=== PATIENT | female | born 1985 | race Caucasian/White ===

== ENCOUNTER → 2023-08-07 06:23 | Day surgery (SDC) | payer BC, SELFPAY | LOC: GI 06:23 | PROVIDERS: ATTENDING PHYSICIAN Internal Medicine Gastroenterology; FAMILY PHYSICIAN Internal Medicine | DX: D12.2 Benign neoplasm of ascending colon (principal); Z83.719 Family history of colon polyps, unspecified | CPT/HCPCS: 45380; 88305 ==

== ENCOUNTER → 2024-05-09 14:10 | Outpatient (REF) | payer BC, SELFPAY ==
[2024-05-12 03:02] LABS: Gastrin 111 pg/mL (0-100)
== END ==
LOC: REG 14:10
PROVIDERS: ATTENDING PHYSICIAN Internal Medicine Gastroenterology; FAMILY PHYSICIAN Internal Medicine
DX: R19.7 Diarrhea, unspecified (principal)
CPT/HCPCS: 36415; 74018; 82941; 86316

== ENCOUNTER 2024-11-28 06:26 | Day surgery (SDC) | payer BC, SELFPAY | END 2024-11-28 12:39 | disposition home or self-care (01) | LOC: GI 06:26 | PROVIDERS: ATTENDING PHYSICIAN Internal Medicine Gastroenterology; FAMILY PHYSICIAN Internal Medicine | DX: K92.1 Melena (principal) | CPT/HCPCS: 45331; 88305 ==

== ENCOUNTER 2025-06-30 11:08 | Outpatient (RCR) | payer BC, SELFPAY | END 2025-06-30 23:59 | disposition home or self-care (01) | LOC: RPT 11:08 | PROVIDERS: ATTENDING PHYSICIAN Internal Medicine Gastroenterology; FAMILY PHYSICIAN Internal Medicine; REFERRING PHYSICIAN Obstetrics & Gynecology | DX: R10.2 Pelvic and perineal pain (principal); M62.89 Other specified disorders of muscle; Z73.6 Limitation of activities due to disability | CPT/HCPCS: 97110; 97112; 97140; 97163; 97530 ==

== ENCOUNTER 2025-07-28 09:22 | Outpatient (RCR) | payer BC, SELFPAY | END 2025-07-28 23:59 | disposition home or self-care (01) | LOC: RPT 09:22 | PROVIDERS: ATTENDING PHYSICIAN Internal Medicine Gastroenterology; FAMILY PHYSICIAN Internal Medicine; REFERRING PHYSICIAN Obstetrics & Gynecology | DX: R10.2 Pelvic and perineal pain (principal); M62.89 Other specified disorders of muscle; Z73.6 Limitation of activities due to disability | CPT/HCPCS: 97110; 97112; 97140; 97530 ==

== ENCOUNTER 2025-08-11 08:48 | Outpatient (RCR) | payer BC, SELFPAY | END 2025-08-11 23:59 | disposition home or self-care (01) | LOC: RPT 08:48 | PROVIDERS: ATTENDING PHYSICIAN Internal Medicine Gastroenterology; FAMILY PHYSICIAN Internal Medicine; REFERRING PHYSICIAN Obstetrics & Gynecology | DX: R10.23 Pelvic and perineal pain bilateral (principal); R10.2 Pelvic and perineal pain (principal); M62.89 Other specified disorders of muscle; Z73.6 Limitation of activities due to disability | CPT/HCPCS: 97110; 97112; 97140; 97530 ==

== ENCOUNTER 2025-09-22 09:14 | Outpatient (RCR) | payer BC, SELFPAY | END 2025-09-22 23:59 | disposition home or self-care (01) | LOC: RPT 09:14 | PROVIDERS: ATTENDING PHYSICIAN Internal Medicine Gastroenterology; FAMILY PHYSICIAN Physician Assistant; REFERRING PHYSICIAN Obstetrics & Gynecology | DX: R10.2 Pelvic and perineal pain (principal); M62.89 Other specified disorders of muscle; Z73.6 Limitation of activities due to disability; R10.20 Pelvic and perineal pain unspecified side; M79.604 Pain in right leg; M25.551 Pain in right hip; M54.59 Other low back pain | CPT/HCPCS: 97112; 97164; 97530 ==

== ENCOUNTER 2025-11-01 07:18 | Outpatient (RCR) | payer BC, SELFPAY | END 2025-11-01 23:59 | disposition home or self-care (01) | LOC: RPT 07:18 | PROVIDERS: ATTENDING PHYSICIAN Internal Medicine Gastroenterology; FAMILY PHYSICIAN Physician Assistant; REFERRING PHYSICIAN Obstetrics & Gynecology | DX: M62.89 Other specified disorders of muscle (principal); Z73.6 Limitation of activities due to disability; R10.20 Pelvic and perineal pain unspecified side; M79.604 Pain in right leg; M25.551 Pain in right hip; M54.59 Other low back pain; R10.2 Pelvic and perineal pain | CPT/HCPCS: 97110; 97112; 97140; 97530 ==